=== PATIENT | male | born 1965 | race Hispanic/Latino ===

== ENCOUNTER 2017-04-21 07:14 | Day surgery (SDC) | payer OTHER ==
[2017-04-21 07:33] VITALS: BMI 31.9
[2017-04-21] MEDS ORDERED: Lactated Ringer's 1,000 ML IV ONE (07:37)
[2017-04-21] MEDS ORDERED: Lidocaine 2% MPF (5 ml) Inj ONE (07:56)
[2017-04-21] MEDS ORDERED: Propofol 10 mg/ml Inj (20 ML) ONE (07:56)
[2017-04-21 08:41] VITALS: TEMP 97.5
[2017-04-21 08:50] VITALS: BP 138/64; PULSE 87; RESP 15; O2SAT 93
== END 2017-04-21 09:06 | disposition home or self-care (01) ==
LOC: H.ENDO 07:14
PROVIDERS: ATTEND Internal Medicine Gastroenterology
DX: Z12.11 Encounter for screening for malignant neoplasm of colon (principal); K57.30 Diverticulosis of large intestine without perforation or abscess without bleeding; K64.8 Other hemorrhoids; R94.5 Abnormal results of liver function studies
CPT/HCPCS: 45378; J2704; J7120